=== PATIENT | female | born 1965 | race Caucasian/White ===

== ENCOUNTER 2020-05-05 17:38 | Inpatient (IN) | payer OTHER ==
[2020-05-05 18:02] VITALS: BMI 25.9
[2020-05-05] MEDS ORDERED: IBUPROFEN 400 MG TABLET (FP) PO PRN (18:54)
[2020-05-05] MEDS ORDERED: MAGNESIUM CITRATE 300 ML BOTTLE PO PRN (18:54)
[2020-05-05] MEDS ORDERED: ACETAMINOPHEN 325 MG TABLET (FP) PO PRN ×2 (18:54)
[2020-05-05] MEDS ORDERED: LORazepam 2 MG TABLET PO ONE (18:54)
[2020-05-05] MEDS ORDERED: BISMUTH SUBSALICYLATE 524 MG/30 ML UD PO PRN (18:54)
[2020-05-05] MEDS ORDERED: LORazepam 1 MG TABLET PO PRN (18:54)
[2020-05-05] MEDS ORDERED: MAGNESIUM HYDROX 2400MG/30ML ORAL SUSPENSION 30 ML CUP PO PRN (18:54)
[2020-05-05] MEDS ORDERED: NICOTINE POLACRILEX 2 MG GUM BUC PRN (18:54)
[2020-05-05] MEDS ORDERED: MENTHOL/PHENOL 1 EACH UD MM PRN (18:54)
[2020-05-05] MEDS ORDERED: MAG HYDROX/AL HYDROX/SIMETH 30 ML UNIT-DOSE CUP PO PRN (18:54)
[2020-05-05] MEDS: hydrOXYzine PAMOATE 25 MG CAPSULE (FP) PO PRN (19:54)
[2020-05-05] MEDS: RIFAXIMIN 550 MG TABLET (UD) PO SCH (22:24)
[2020-05-05] MEDS: MELATONIN 5 MG TABLETS PO SCH (22:24)
[2020-05-05] MEDS: THIAMINE HCL 100 MG TABLET (FP) PO SCH (22:24)
[2020-05-05] MEDS: LORazepam 2 MG TABLET PO SCH (22:25)
[2020-05-05] MEDS ORDERED: hydrOXYzine PAMOATE 25 MG CAPSULE (FP) PO ONE (23:00)
[2020-05-06] MEDS: LORazepam 2 MG TABLET PO SCH ×4 (06:17→22:29)
[2020-05-06] MEDS: PANTOPRAZOLE 40 MG TABLET PO SCH (10:08)
[2020-05-06] MEDS: PRENATAL VITAMINS W/ FOLIC ACID TABLET (FP) PO SCH (10:08)
[2020-05-06] MEDS: SPIRONOLACTONE 25 MG TABLET PO SCH (10:11)
[2020-05-06] MEDS: CYANOCOBALAMIN 1,000 MCG TABLET (FP) PO SCH (10:11)
[2020-05-06] MEDS: RIFAXIMIN 550 MG TABLET (UD) PO SCH ×2 (10:11→22:32)
[2020-05-06] MEDS: NICOTINE 14 MG/24 HOURS TOPICAL PATCH TD SCH (10:13)
[2020-05-06 11:24] LABS: HEMATOCRIT 33.5 % (32.4-45.2); HEMOGLOBIN 11.1 GM/dL (10.7-15.3); MCH 35.6 pg (25.7-33.7); MCHC 33.3 g/dl (32.0-36.0); MEAN CELL VOLUME 106.9 fl (80-96); MEAN PLT VOLUME 10.6 fl (7.5-11.1); PLATELET COUNT 40 K/MM3 (134-434); RBC 3.13 M/mm3 (3.60-5.2); RDW 17.7 % (11.6-15.6)
[2020-05-06 11:37] LABS: POTASSIUM 4.1 mmol/L (3.5-5.1)
[2020-05-06 11:50] LABS: ALBUMIN 2.4 g/dl (3.4-5.0); BLOOD UREA NITROGEN 9.9 mg/dL (7-18); CALCIUM 8.3 mg/dL (8.5-10.1)
[2020-05-06 11:54] LABS: CREATININE 0.6 mg/dL (0.55-1.3)
[2020-05-06 11:55] LABS: BILIRUBIN,TOTAL 2.7 mg/dL (0.2-1); TOT PROT 6.3 g/dl (6.4-8.2)
[2020-05-06] MEDS: LACTULOSE 20 GM/30 ML UDC (FOR ORAL USE ONLY) PO SCH ×2 (14:41→22:36)
[2020-05-06] MEDS: MAGNESIUM OXIDE 400 MG TABLET (FP) PO SCH (17:53)
[2020-05-06] MEDS: METHOCARBAMOL 500 MG TABLET PO PRN (17:56)
[2020-05-06 20:36] LABS: PH,URINE 6.5 (5.0-8.0); URINE APPEARANCE CLEAR; URINE BILIRUBIN NEGATIVE (NEGATIVE); URINE COLOR YELLOW; URINE GLUCOSE (UA) NEGATIVE (NEGATIVE); URINE KETONE NEGATIVE (NEGATIVE); URINE LEUK ESTERASE NEGATIVE (NEGATIVE); URINE NITRITE NEGATIVE (NEGATIVE); URINE PROTEIN NEGATIVE (NEGATIVE)
[2020-05-06] MEDS: traZODone HCL 50 MG TABLET (FP) PO SCH (22:30)
[2020-05-06] MEDS ORDERED: MASKS NR ONE (22:30)
[2020-05-06] MEDS: THIAMINE HCL 100 MG TABLET (FP) PO SCH (22:32)
[2020-05-06] MEDS: MELATONIN 5 MG TABLETS PO SCH (22:32)
[2020-05-07] MEDS: LORazepam 1 MG TABLET PO SCH ×4 (06:27→22:16)
[2020-05-07] MEDS: LACTULOSE 20 GM/30 ML UDC (FOR ORAL USE ONLY) PO SCH ×3 (06:28→22:16)
[2020-05-07 09:02] LABS: HEMOGLOBIN 10.6 GM/dL (10.7-15.3); MCH 34.9 pg (25.7-33.7); MCHC 33.3 g/dl (32.0-36.0); MEAN CELL VOLUME 104.8 fl (80-96); MEAN PLT VOLUME 9.8 fl (7.5-11.1); RBC 3.05 M/mm3 (3.60-5.2); RDW 17.4 % (11.6-15.6); WHITE BLOOD COUNT 3.6 K/mm3 (4.0-10.0)
[2020-05-07] MEDS: RIFAXIMIN 550 MG TABLET (UD) PO SCH ×2 (10:12→22:16)
[2020-05-07] MEDS: PANTOPRAZOLE 40 MG TABLET PO SCH (10:13)
[2020-05-07] MEDS: SPIRONOLACTONE 25 MG TABLET PO SCH (10:13)
[2020-05-07] MEDS: CYANOCOBALAMIN 1,000 MCG TABLET (FP) PO SCH (10:13)
[2020-05-07] MEDS: PRENATAL VITAMINS W/ FOLIC ACID TABLET (FP) PO SCH (10:13)
[2020-05-07 10:14] LABS: PLATELET COUNT 57 K/MM3 (134-434)
[2020-05-07] MEDS: NICOTINE 14 MG/24 HOURS TOPICAL PATCH TD SCH (10:14)
[2020-05-07] MEDS: METHOCARBAMOL 500 MG TABLET PO PRN (17:58)
[2020-05-07] MEDS: MAGNESIUM OXIDE 400 MG TABLET (FP) PO SCH (17:58)
[2020-05-07] MEDS ORDERED: IBUPROFEN 400 MG TABLET (FP) PO ONE (21:40)
[2020-05-07] MEDS: THIAMINE HCL 100 MG TABLET (FP) PO SCH (22:16)
[2020-05-07] MEDS: MELATONIN 5 MG TABLETS PO SCH (22:16)
[2020-05-07] MEDS: traZODone HCL 50 MG TABLET (FP) PO SCH (22:16)
[2020-05-08] MEDS ORDERED: LORazepam 0.5 MG TABLET PO PRN
[2020-05-08] MEDS: LACTULOSE 20 GM/30 ML UDC (FOR ORAL USE ONLY) PO SCH ×3 (06:06→22:09)
[2020-05-08] MEDS: ONDANSETRON *ODT* 4 MG TABLET SL PRN ×2 (06:07→15:25)
[2020-05-08] MEDS: LORazepam 0.5 MG TABLET PO SCH ×4 (06:07→22:08)
[2020-05-08] MEDS: PRENATAL VITAMINS W/ FOLIC ACID TABLET (FP) PO SCH (10:08)
[2020-05-08] MEDS: NICOTINE 14 MG/24 HOURS TOPICAL PATCH TD SCH (10:08)
[2020-05-08] MEDS: CYANOCOBALAMIN 1,000 MCG TABLET (FP) PO SCH (10:08)
[2020-05-08] MEDS: PANTOPRAZOLE 40 MG TABLET PO SCH (10:08)
[2020-05-08] MEDS: RIFAXIMIN 550 MG TABLET (UD) PO SCH ×2 (10:08→22:09)
[2020-05-08] MEDS: SPIRONOLACTONE 25 MG TABLET PO SCH (10:08)
[2020-05-08] MEDS: METHOCARBAMOL 500 MG TABLET PO PRN (10:10)
[2020-05-08] MEDS: hydrOXYzine PAMOATE 25 MG CAPSULE (FP) PO PRN (15:46)
[2020-05-08] MEDS: MAGNESIUM OXIDE 400 MG TABLET (FP) PO SCH (17:31)
[2020-05-08] MEDS ORDERED: MASKS NR ONE (17:39)
[2020-05-08] MEDS: THIAMINE HCL 100 MG TABLET (FP) PO SCH (22:09)
[2020-05-08] MEDS: MELATONIN 5 MG TABLETS PO SCH (22:09)
[2020-05-08] MEDS: traZODone HCL 50 MG TABLET (FP) PO SCH (22:09)
[2020-05-09] MEDS: hydrOXYzine PAMOATE 25 MG CAPSULE (FP) PO PRN (01:09)
[2020-05-09] MEDS ORDERED: LORazepam 0.5 MG TABLET PO ONE (05:00)
[2020-05-09] MEDS: LACTULOSE 20 GM/30 ML UDC (FOR ORAL USE ONLY) PO SCH (06:39)
[2020-05-09 09:16] VITALS: BP 104/66; PULSE 73; TEMP 98.1
[2020-05-09] MEDS ORDERED: MASKS NR ONE (09:30)
[2020-05-09] MEDS: RIFAXIMIN 550 MG TABLET (UD) PO SCH (09:31)
[2020-05-09] MEDS: CYANOCOBALAMIN 1,000 MCG TABLET (FP) PO SCH (09:31)
[2020-05-09] MEDS: PRENATAL VITAMINS W/ FOLIC ACID TABLET (FP) PO SCH (09:31)
[2020-05-09] MEDS: SPIRONOLACTONE 25 MG TABLET PO SCH (09:31)
[2020-05-09] MEDS: PANTOPRAZOLE 40 MG TABLET PO SCH (09:31)
[2020-05-09] MEDS: NICOTINE 14 MG/24 HOURS TOPICAL PATCH TD SCH (09:32)
== END 2020-05-09 10:52 | disposition other institution (70) | DRG 775 ==
LOC: YASAS 17:38 → Y3N 18:13
PROVIDERS: ADMIT Allergy & Immunology; ATTEND Allergy & Immunology
PROC: HZ2ZZZZ Detoxification Services for Substance Abuse Treatment (ICD-10-PCS; principal; 2020-05-05)
DX: F10.230 Alcohol dependence with withdrawal, uncomplicated (principal); F17.210 Nicotine dependence, cigarettes, uncomplicated; F19.24 Other psychoactive substance dependence with psychoactive substance-induced mood disorder; D69.6 Thrombocytopenia, unspecified; K21.9 Gastro-esophageal reflux disease without esophagitis; K70.31 Alcoholic cirrhosis of liver with ascites; G47.00 Insomnia, unspecified; M54.9 Dorsalgia, unspecified; R16.0 Hepatomegaly, not elsewhere classified; R14.0 Abdominal distension (gaseous)
CPT/HCPCS: 36415; 80053; 81003; 81025; 82140; 85027; 86780; 93005; 93010; C9803; Q0162; U0003